=== PATIENT | female | born 1930 | race Caucasian/White ===

== ENCOUNTER 2021-03-08 15:49 | Inpatient (IN) ==
[2021-03-08] MEDS ORDERED: Loratadine 10 MG TABLET PO PRN (16:58)
[2021-03-08] MEDS ORDERED: Albuterol 2.5 MG/3 ML NEBULIZER IH PRN (16:58)
[2021-03-08] MEDS ORDERED: [UNRECOGNIZED DRUG - OTHER] IV SCH (17:00)
[2021-03-08] MEDS: cloNIDine HCL 0.1 MG TABLET PO SCH (20:36)
[2021-03-08] MEDS: Gabapentin 300 MG CAPSULE PO SCH (20:36)
[2021-03-08] MEDS: Piperacillin/Tazobactam 3.375 GM in 0.9 % Sodium Chloride Mini Bag 100 ML IVPB SCH (20:37)
[2021-03-08] MEDS: CILOSTAZOL 50 MG PO SCH (20:37)
[2021-03-08] MEDS: Sennosides/Docusate Sodium TABLET PO SCH (20:37)
[2021-03-09] MEDS: Piperacillin/Tazobactam 3.375 GM in 0.9 % Sodium Chloride Mini Bag 100 ML IVPB SCH ×3 (03:50→19:33)
[2021-03-09 07:38] LABS: Basophils # 0.1 K/mcL (0.0-0.2); Basophils % 0.7 %; Eosinophils # 0.1 K/mcL (0.0-0.6); Eosinophils % 0.8 %; Hematocrit 38.5 % (35.3-44.9); Hemoglobin 12.2 g/dL (11.5-15.4); Immature Granulocytes % 0.5 % (0-4); Lymphocytes # 1.3 K/mcL (0.6-4.6); Mean Corpuscular HGB Conc 31.7 g/dL (31.6-35.5); Mean Corpuscular Volume 94.8 fL (83.0-100.0); Mean Platelet Volume 9.5 fL (9.4-12.4); Monocytes # 1.1 K/mcL (0.0-1.3); Monocytes % 9.6 %; Neutrophils # 8.3 K/mcL (1.6-8.9); Platelet Count 266 K/mcL (140-400); Red Blood Count 4.06 M/mcL (3.82-4.97); Red Cell Distribution Width 13.7 % (11.5-14.5); Segmented Neutrophils % 76.4 %; White Blood Count 10.9 K/mcL (4.3-11.1)
[2021-03-09 08:03] LABS: Calcium 8.7 mg/dL (8.6-10.3); Potassium 4.1 mEq/L (3.5-5.1)
[2021-03-09] MEDS: Gabapentin 300 MG CAPSULE PO SCH ×3 (08:48→20:24)
[2021-03-09] MEDS: Cyanocobalamin (B-12) 1,000 MCG TABLET PO SCH (08:48)
[2021-03-09] MEDS: Metoprolol XL (24 HR) Succ 50 MG TAB.ER.24H PO SCH (08:48)
[2021-03-09] MEDS: Bumetanide 1 MG TABLET PO SCH (08:48)
[2021-03-09] MEDS: Sennosides/Docusate Sodium TABLET PO SCH ×2 (08:48→20:23)
[2021-03-09] MEDS: cloNIDine HCL 0.1 MG TABLET PO SCH ×3 (08:48→20:24)
[2021-03-09] MEDS: CILOSTAZOL 50 MG PO SCH ×2 (08:48→20:21)
[2021-03-09] MEDS: Cholecalciferol (D-3) 1,000 UNIT (25MCG) TABLET PO SCH (08:48)
[2021-03-09] MEDS: Multivit/Ca/Min/Fe/FA 1 TAB TABLET PO SCH (08:48)
[2021-03-09] MEDS: [UNRECOGNIZED DRUG - OTHER] PO SCH (08:49)
[2021-03-09] MEDS: OSTEO BI FLEX PO SCH (08:49)
[2021-03-09] MEDS ORDERED: lisinopriL 20 MG TABLET PO SCH (09:00)
[2021-03-09] MEDS ORDERED: *HR* HYDROcodone/Acet 5/325 mg TABLET PO PRN (11:16)
[2021-03-10] MEDS: Piperacillin/Tazobactam 3.375 GM in 0.9 % Sodium Chloride Mini Bag 100 ML IVPB SCH ×3 (04:32→19:48)
[2021-03-10] MEDS: cloNIDine HCL 0.1 MG TABLET PO SCH ×3 (08:28→19:45)
[2021-03-10] MEDS: Cyanocobalamin (B-12) 1,000 MCG TABLET PO SCH (08:28)
[2021-03-10] MEDS: amLODIPine 5 MG TABLET PO SCH (08:28)
[2021-03-10] MEDS: Sennosides/Docusate Sodium TABLET PO SCH ×2 (08:28→19:45)
[2021-03-10] MEDS: Metoprolol XL (24 HR) Succ 50 MG TAB.ER.24H PO SCH (08:28)
[2021-03-10] MEDS: Multivit/Ca/Min/Fe/FA 1 TAB TABLET PO SCH (08:28)
[2021-03-10] MEDS: Bumetanide 1 MG TABLET PO SCH (08:28)
[2021-03-10] MEDS: Cholecalciferol (D-3) 1,000 UNIT (25MCG) TABLET PO SCH (08:28)
[2021-03-10] MEDS: Gabapentin 300 MG CAPSULE PO SCH ×3 (08:28→19:46)
[2021-03-10] MEDS: OSTEO BI FLEX PO SCH (08:29)
[2021-03-10] MEDS: CILOSTAZOL 50 MG PO SCH ×2 (08:29→19:46)
[2021-03-10] MEDS: [UNRECOGNIZED DRUG - OTHER] PO SCH (08:29)
[2021-03-10] MEDS ORDERED: lisinopriL 20 MG TABLET PO SCH (09:00)
[2021-03-10] MEDS: Nystatin POWDER 30 GM BOTTLE TP SCH ×2 (14:31→19:49)
[2021-03-11] MEDS: Piperacillin/Tazobactam 3.375 GM in 0.9 % Sodium Chloride Mini Bag 100 ML IVPB SCH ×3 (04:49→19:42)
[2021-03-11] MEDS: Nystatin POWDER 30 GM BOTTLE TP SCH ×2 (09:20→19:43)
[2021-03-11] MEDS: Multivit/Ca/Min/Fe/FA 1 TAB TABLET PO SCH (09:21)
[2021-03-11] MEDS: Bumetanide 1 MG TABLET PO SCH (09:21)
[2021-03-11] MEDS: amLODIPine 5 MG TABLET PO SCH (09:21)
[2021-03-11] MEDS: cloNIDine HCL 0.1 MG TABLET PO SCH ×3 (09:21→19:41)
[2021-03-11] MEDS: Gabapentin 300 MG CAPSULE PO SCH ×3 (09:21→19:40)
[2021-03-11] MEDS: Sennosides/Docusate Sodium TABLET PO SCH ×2 (09:21→19:40)
[2021-03-11] MEDS: Metoprolol XL (24 HR) Succ 50 MG TAB.ER.24H PO SCH (09:21)
[2021-03-11] MEDS: Cholecalciferol (D-3) 1,000 UNIT (25MCG) TABLET PO SCH (09:21)
[2021-03-11] MEDS: Cyanocobalamin (B-12) 1,000 MCG TABLET PO SCH (09:21)
[2021-03-11] MEDS: OSTEO BI FLEX PO SCH (09:29)
[2021-03-11] MEDS: [UNRECOGNIZED DRUG - OTHER] PO SCH (09:29)
[2021-03-11] MEDS: CILOSTAZOL 50 MG PO SCH ×2 (09:31→19:55)
[2021-03-12] MEDS: Piperacillin/Tazobactam 3.375 GM in 0.9 % Sodium Chloride Mini Bag 100 ML IVPB SCH ×3 (04:34→19:54)
[2021-03-12] MEDS: Cholecalciferol (D-3) 1,000 UNIT (25MCG) TABLET PO SCH (08:45)
[2021-03-12] MEDS: CILOSTAZOL 50 MG PO SCH (08:45)
[2021-03-12] MEDS: Multivit/Ca/Min/Fe/FA 1 TAB TABLET PO SCH (08:45)
[2021-03-12] MEDS: Cyanocobalamin (B-12) 1,000 MCG TABLET PO SCH (08:45)
[2021-03-12] MEDS: cloNIDine HCL 0.1 MG TABLET PO SCH ×3 (08:45→19:53)
[2021-03-12] MEDS: Bumetanide 1 MG TABLET PO SCH (08:45)
[2021-03-12] MEDS: Nystatin POWDER 30 GM BOTTLE TP SCH ×2 (08:45→19:55)
[2021-03-12] MEDS: Gabapentin 300 MG CAPSULE PO SCH ×3 (08:45→19:52)
[2021-03-12] MEDS: amLODIPine 5 MG TABLET PO SCH (08:45)
[2021-03-12] MEDS: Sennosides/Docusate Sodium TABLET PO SCH ×2 (08:45→19:54)
[2021-03-12] MEDS: Metoprolol XL (24 HR) Succ 50 MG TAB.ER.24H PO SCH (08:45)
[2021-03-12] MEDS: [UNRECOGNIZED DRUG - OTHER] PO SCH (08:47)
[2021-03-12] MEDS: OSTEO BI FLEX PO SCH (08:47)
[2021-03-12] MEDS: cilostazoL 100 MG TABLET PO SCH (20:32)
[2021-03-13] MEDS: Piperacillin/Tazobactam 3.375 GM in 0.9 % Sodium Chloride Mini Bag 100 ML IVPB SCH ×3 (05:44→22:47)
[2021-03-13] MEDS: *HR* Heparin 5,000 UNIT/ML VIAL SQ SCH ×4 (05:44→22:47)
[2021-03-13 07:36] LABS: Hematocrit 41.8 % (35.3-44.9); Hemoglobin 13.4 g/dL (11.5-15.4); Mean Corpuscular HGB Conc 32.1 g/dL (31.6-35.5); Mean Corpuscular Hemoglobin 30.5 pg (28.0-33.3); Mean Corpuscular Volume 95.2 fL (83.0-100.0); Mean Platelet Volume 9.8 fL (9.4-12.4); Platelet Count 317 K/mcL (140-400); Red Blood Count 4.39 M/mcL (3.82-4.97); Red Cell Distribution Width 14.2 % (11.5-14.5); White Blood Count 9.9 K/mcL (4.3-11.1)
[2021-03-13 07:52] LABS: Calcium 8.8 mg/dL (8.6-10.3); Potassium 3.4 mEq/L (3.5-5.1)
[2021-03-13] MEDS: cloNIDine HCL 0.1 MG TABLET PO SCH ×3 (08:24→20:18)
[2021-03-13] MEDS: Metoprolol XL (24 HR) Succ 50 MG TAB.ER.24H PO SCH (08:24)
[2021-03-13] MEDS: Multivit/Ca/Min/Fe/FA 1 TAB TABLET PO SCH (08:25)
[2021-03-13] MEDS: Sennosides/Docusate Sodium TABLET PO SCH ×2 (08:25→20:18)
[2021-03-13] MEDS: cilostazoL 100 MG TABLET PO SCH ×2 (08:25→20:18)
[2021-03-13] MEDS: Cyanocobalamin (B-12) 1,000 MCG TABLET PO SCH (08:25)
[2021-03-13] MEDS: Bumetanide 1 MG TABLET PO SCH (08:25)
[2021-03-13] MEDS: Gabapentin 300 MG CAPSULE PO SCH ×3 (08:25→20:18)
[2021-03-13] MEDS: amLODIPine 5 MG TABLET PO SCH (08:26)
[2021-03-13] MEDS: Cholecalciferol (D-3) 1,000 UNIT (25MCG) TABLET PO SCH (08:26)
[2021-03-13] MEDS: Nystatin POWDER 30 GM BOTTLE TP SCH ×2 (08:26→20:19)
[2021-03-13] MEDS: OSTEO BI FLEX PO SCH (08:29)
[2021-03-13] MEDS: [UNRECOGNIZED DRUG - OTHER] PO SCH (08:29)
[2021-03-14] MEDS: Piperacillin/Tazobactam 3.375 GM in 0.9 % Sodium Chloride Mini Bag 100 ML IVPB SCH ×3 (05:38→22:41)
[2021-03-14] MEDS: *HR* Heparin 5,000 UNIT/ML VIAL SQ SCH ×3 (05:39→22:40)
[2021-03-14] MEDS: Cyanocobalamin (B-12) 1,000 MCG TABLET PO SCH (09:11)
[2021-03-14] MEDS: Gabapentin 300 MG CAPSULE PO SCH ×3 (09:11→20:34)
[2021-03-14] MEDS: cloNIDine HCL 0.1 MG TABLET PO SCH ×3 (09:11→20:33)
[2021-03-14] MEDS: Metoprolol XL (24 HR) Succ 50 MG TAB.ER.24H PO SCH (09:12)
[2021-03-14] MEDS: amLODIPine 5 MG TABLET PO SCH (09:12)
[2021-03-14] MEDS: Multivit/Ca/Min/Fe/FA 1 TAB TABLET PO SCH (09:12)
[2021-03-14] MEDS: Cholecalciferol (D-3) 1,000 UNIT (25MCG) TABLET PO SCH (09:12)
[2021-03-14] MEDS: Bumetanide 1 MG TABLET PO SCH (09:13)
[2021-03-14] MEDS: Sennosides/Docusate Sodium TABLET PO SCH ×2 (09:13→20:34)
[2021-03-14] MEDS: cilostazoL 100 MG TABLET PO SCH ×2 (09:13→20:33)
[2021-03-14] MEDS: Nystatin POWDER 30 GM BOTTLE TP SCH ×2 (09:14→20:34)
[2021-03-14] MEDS: OSTEO BI FLEX PO SCH (09:22)
[2021-03-14] MEDS: [UNRECOGNIZED DRUG - OTHER] PO SCH (09:22)
[2021-03-15] MEDS: *HR* Heparin 5,000 UNIT/ML VIAL SQ SCH ×3 (06:26→21:37)
[2021-03-15] MEDS: Piperacillin/Tazobactam 3.375 GM in 0.9 % Sodium Chloride Mini Bag 100 ML IVPB SCH ×4 (06:26→21:37)
[2021-03-15] MEDS: cilostazoL 100 MG TABLET PO SCH ×2 (09:24→20:50)
[2021-03-15] MEDS: Cholecalciferol (D-3) 1,000 UNIT (25MCG) TABLET PO SCH (09:24)
[2021-03-15] MEDS: amLODIPine 5 MG TABLET PO SCH (09:24)
[2021-03-15] MEDS: Bumetanide 1 MG TABLET PO SCH (09:24)
[2021-03-15] MEDS: Cyanocobalamin (B-12) 1,000 MCG TABLET PO SCH (09:24)
[2021-03-15] MEDS: Metoprolol XL (24 HR) Succ 50 MG TAB.ER.24H PO SCH (09:24)
[2021-03-15] MEDS: cloNIDine HCL 0.1 MG TABLET PO SCH ×3 (09:26→20:49)
[2021-03-15] MEDS: Sennosides/Docusate Sodium TABLET PO SCH ×2 (09:26→20:50)
[2021-03-15] MEDS: Multivit/Ca/Min/Fe/FA 1 TAB TABLET PO SCH (09:26)
[2021-03-15] MEDS: Gabapentin 300 MG CAPSULE PO SCH ×3 (09:26→20:49)
[2021-03-15] MEDS: [UNRECOGNIZED DRUG - OTHER] PO SCH (09:27)
[2021-03-15] MEDS: Fluticasone Propionate Nasal 50 MCG/SPRAY BOTTLE NS SCH (09:27)
[2021-03-15] MEDS: OSTEO BI FLEX PO SCH (09:27)
[2021-03-15] MEDS: Nystatin POWDER 30 GM BOTTLE TP SCH ×2 (14:27→20:50)
[2021-03-15] MEDS: Triamcinolone Acet 0.1% CRM 15 GM TUBE TP SCH (20:52)
[2021-03-16] MEDS: Piperacillin/Tazobactam 3.375 GM in 0.9 % Sodium Chloride Mini Bag 100 ML IVPB SCH ×3 (05:50→18:19)
[2021-03-16] MEDS: *HR* Heparin 5,000 UNIT/ML VIAL SQ SCH ×3 (05:55→21:34)
[2021-03-16] MEDS: Gabapentin 300 MG CAPSULE PO SCH ×3 (08:11→20:31)
[2021-03-16] MEDS: Multivit/Ca/Min/Fe/FA 1 TAB TABLET PO SCH (08:11)
[2021-03-16] MEDS: Metoprolol XL (24 HR) Succ 50 MG TAB.ER.24H PO SCH (08:12)
[2021-03-16] MEDS: amLODIPine 5 MG TABLET PO SCH (08:12)
[2021-03-16] MEDS: cilostazoL 100 MG TABLET PO SCH ×2 (08:13→20:31)
[2021-03-16] MEDS: Bumetanide 1 MG TABLET PO SCH (08:13)
[2021-03-16] MEDS: cloNIDine HCL 0.1 MG TABLET PO SCH ×3 (08:16→20:30)
[2021-03-16] MEDS: Cholecalciferol (D-3) 1,000 UNIT (25MCG) TABLET PO SCH (08:17)
[2021-03-16] MEDS: Cyanocobalamin (B-12) 1,000 MCG TABLET PO SCH (08:17)
[2021-03-16] MEDS: Nystatin POWDER 30 GM BOTTLE TP SCH ×2 (08:18→20:32)
[2021-03-16] MEDS: Fluticasone Propionate Nasal 50 MCG/SPRAY BOTTLE NS SCH (08:18)
[2021-03-16] MEDS: Triamcinolone Acet 0.1% CRM 15 GM TUBE TP SCH ×2 (08:23→20:33)
[2021-03-16] MEDS: OSTEO BI FLEX PO SCH (09:36)
[2021-03-16] MEDS: [UNRECOGNIZED DRUG - OTHER] PO SCH (09:36)
[2021-03-16] MEDS: Sennosides/Docusate Sodium TABLET PO SCH ×2 (09:41→20:30)
[2021-03-17] MEDS: Piperacillin/Tazobactam 3.375 GM in 0.9 % Sodium Chloride Mini Bag 100 ML IVPB SCH ×3 (06:04→21:52)
[2021-03-17] MEDS: *HR* Heparin 5,000 UNIT/ML VIAL SQ SCH ×3 (06:04→20:30)
[2021-03-17] MEDS: Multivit/Ca/Min/Fe/FA 1 TAB TABLET PO SCH (09:27)
[2021-03-17] MEDS: Metoprolol XL (24 HR) Succ 50 MG TAB.ER.24H PO SCH (09:27)
[2021-03-17] MEDS: amLODIPine 5 MG TABLET PO SCH (09:28)
[2021-03-17] MEDS: Gabapentin 300 MG CAPSULE PO SCH ×3 (09:28→20:29)
[2021-03-17] MEDS: Sennosides/Docusate Sodium TABLET PO SCH ×2 (09:29→20:29)
[2021-03-17] MEDS: Cholecalciferol (D-3) 1,000 UNIT (25MCG) TABLET PO SCH (09:29)
[2021-03-17] MEDS: Bumetanide 1 MG TABLET PO SCH (09:29)
[2021-03-17] MEDS: cloNIDine HCL 0.1 MG TABLET PO SCH ×3 (09:30→20:27)
[2021-03-17] MEDS: Cyanocobalamin (B-12) 1,000 MCG TABLET PO SCH (09:31)
[2021-03-17] MEDS: cilostazoL 100 MG TABLET PO SCH ×2 (09:31→20:29)
[2021-03-17] MEDS: [UNRECOGNIZED DRUG - OTHER] PO SCH (09:31)
[2021-03-17] MEDS: OSTEO BI FLEX PO SCH (09:32)
[2021-03-17] MEDS: Fluticasone Propionate Nasal 50 MCG/SPRAY BOTTLE NS SCH (09:33)
[2021-03-17] MEDS: Triamcinolone Acet 0.1% CRM 15 GM TUBE TP SCH ×2 (09:33→21:54)
[2021-03-17] MEDS: Nystatin POWDER 30 GM BOTTLE TP SCH ×2 (09:34→20:33)
[2021-03-18] MEDS: Piperacillin/Tazobactam 3.375 GM in 0.9 % Sodium Chloride Mini Bag 100 ML IVPB SCH ×3 (05:33→22:29)
[2021-03-18] MEDS: *HR* Heparin 5,000 UNIT/ML VIAL SQ SCH ×3 (05:35→22:29)
[2021-03-18] MEDS: cilostazoL 100 MG TABLET PO SCH ×2 (08:52→19:30)
[2021-03-18] MEDS: Metoprolol XL (24 HR) Succ 50 MG TAB.ER.24H PO SCH (08:52)
[2021-03-18] MEDS: cloNIDine HCL 0.1 MG TABLET PO SCH ×3 (08:52→19:30)
[2021-03-18] MEDS: Gabapentin 300 MG CAPSULE PO SCH ×3 (08:52→19:30)
[2021-03-18] MEDS: Cyanocobalamin (B-12) 1,000 MCG TABLET PO SCH (08:53)
[2021-03-18] MEDS: Multivit/Ca/Min/Fe/FA 1 TAB TABLET PO SCH (08:53)
[2021-03-18] MEDS: Bumetanide 1 MG TABLET PO SCH (08:53)
[2021-03-18] MEDS: amLODIPine 5 MG TABLET PO SCH (08:53)
[2021-03-18] MEDS: Sennosides/Docusate Sodium TABLET PO SCH ×2 (08:53→19:31)
[2021-03-18] MEDS: Cholecalciferol (D-3) 1,000 UNIT (25MCG) TABLET PO SCH (08:53)
[2021-03-18] MEDS: Nystatin POWDER 30 GM BOTTLE TP SCH ×2 (08:53→19:31)
[2021-03-18] MEDS: Fluticasone Propionate Nasal 50 MCG/SPRAY BOTTLE NS SCH (09:38)
[2021-03-18] MEDS: OSTEO BI FLEX PO SCH (09:40)
[2021-03-18] MEDS: [UNRECOGNIZED DRUG - OTHER] PO SCH (09:40)
[2021-03-18] MEDS: Triamcinolone Acet 0.1% CRM 15 GM TUBE TP SCH ×2 (09:40→19:31)
[2021-03-19] MEDS: *HR* Heparin 5,000 UNIT/ML VIAL SQ SCH ×3 (06:16→21:29)
[2021-03-19] MEDS: Piperacillin/Tazobactam 3.375 GM in 0.9 % Sodium Chloride Mini Bag 100 ML IVPB SCH ×3 (06:16→21:30)
[2021-03-19] MEDS: Bumetanide 1 MG TABLET PO SCH (07:41)
[2021-03-19] MEDS: Cholecalciferol (D-3) 1,000 UNIT (25MCG) TABLET PO SCH (07:41)
[2021-03-19] MEDS: Gabapentin 300 MG CAPSULE PO SCH ×3 (07:41→21:29)
[2021-03-19] MEDS: cilostazoL 100 MG TABLET PO SCH ×2 (07:41→21:28)
[2021-03-19] MEDS: cloNIDine HCL 0.1 MG TABLET PO SCH ×3 (07:42→21:28)
[2021-03-19] MEDS: Cyanocobalamin (B-12) 1,000 MCG TABLET PO SCH (07:42)
[2021-03-19] MEDS: Metoprolol XL (24 HR) Succ 50 MG TAB.ER.24H PO SCH (07:42)
[2021-03-19] MEDS: amLODIPine 5 MG TABLET PO SCH (07:42)
[2021-03-19] MEDS: Multivit/Ca/Min/Fe/FA 1 TAB TABLET PO SCH (07:42)
[2021-03-19] MEDS: OSTEO BI FLEX PO SCH (07:43)
[2021-03-19] MEDS: [UNRECOGNIZED DRUG - OTHER] PO SCH (07:43)
[2021-03-19] MEDS: Nystatin POWDER 30 GM BOTTLE TP SCH ×2 (07:43→21:29)
[2021-03-19] MEDS: Fluticasone Propionate Nasal 50 MCG/SPRAY BOTTLE NS SCH (07:43)
[2021-03-19] MEDS: Triamcinolone Acet 0.1% CRM 15 GM TUBE TP SCH ×2 (07:49→21:30)
[2021-03-19] MEDS: Sennosides/Docusate Sodium TABLET PO SCH ×2 (07:55→21:29)
[2021-03-20] MEDS: Piperacillin/Tazobactam 3.375 GM in 0.9 % Sodium Chloride Mini Bag 100 ML IVPB SCH ×3 (06:22→22:15)
[2021-03-20] MEDS: *HR* Heparin 5,000 UNIT/ML VIAL SQ SCH ×3 (06:23→22:15)
[2021-03-20] MEDS: Bumetanide 1 MG TABLET PO SCH (07:53)
[2021-03-20] MEDS: Gabapentin 300 MG CAPSULE PO SCH ×3 (07:53→19:26)
[2021-03-20] MEDS: cloNIDine HCL 0.1 MG TABLET PO SCH ×3 (07:53→19:26)
[2021-03-20] MEDS: Cyanocobalamin (B-12) 1,000 MCG TABLET PO SCH (07:53)
[2021-03-20] MEDS: Cholecalciferol (D-3) 1,000 UNIT (25MCG) TABLET PO SCH (07:53)
[2021-03-20] MEDS: Multivit/Ca/Min/Fe/FA 1 TAB TABLET PO SCH (07:53)
[2021-03-20] MEDS: Fluticasone Propionate Nasal 50 MCG/SPRAY BOTTLE NS SCH (07:54)
[2021-03-20] MEDS: amLODIPine 5 MG TABLET PO SCH (07:54)
[2021-03-20] MEDS: cilostazoL 100 MG TABLET PO SCH ×2 (07:54→19:26)
[2021-03-20] MEDS: Metoprolol XL (24 HR) Succ 50 MG TAB.ER.24H PO SCH (07:54)
[2021-03-20] MEDS: Nystatin POWDER 30 GM BOTTLE TP SCH ×2 (07:55→19:27)
[2021-03-20] MEDS: OSTEO BI FLEX PO SCH (07:55)
[2021-03-20] MEDS: [UNRECOGNIZED DRUG - OTHER] PO SCH (07:55)
[2021-03-20] MEDS: Triamcinolone Acet 0.1% CRM 15 GM TUBE TP SCH ×2 (07:56→19:27)
[2021-03-20] MEDS: Sennosides/Docusate Sodium TABLET PO SCH (07:56)
[2021-03-20 09:01] LABS: Basophils # 0.1 K/mcL (0.0-0.2); Basophils % 1.2 %; Eosinophils # 0.3 K/mcL (0.0-0.6); Eosinophils % 3.5 %; Hematocrit 37.4 % (35.3-44.9); Hemoglobin 11.7 g/dL (11.5-15.4); Immature Granulocytes % 0.5 % (0-4); Lymphocytes # 1.5 K/mcL (0.6-4.6); Lymphocytes % 17.9 %; Mean Corpuscular HGB Conc 31.3 g/dL (31.6-35.5); Mean Corpuscular Hemoglobin 29.9 pg (28.0-33.3); Mean Corpuscular Volume 95.7 fL (83.0-100.0); Mean Platelet Volume 10.9 fL (9.4-12.4); Monocytes # 0.7 K/mcL (0.0-1.3); Neutrophils # 5.5 K/mcL (1.6-8.9); Platelet Count 247 K/mcL (140-400); Red Blood Count 3.91 M/mcL (3.82-4.97); Red Cell Distribution Width 14.5 % (11.5-14.5); Segmented Neutrophils % 67.9 %; White Blood Count 8.1 K/mcL (4.3-11.1)
[2021-03-20 09:17] LABS: Albumin 3.2 g/dL (3.5-5.7); Calcium 9.1 mg/dL (8.6-10.3); Phosphorous 2.8 mg/dL (2.7-4.5); Potassium 3.5 mEq/L (3.5-5.1)
[2021-03-20 09:46] LABS: Platelet Estimate Normal (Normal)
[2021-03-20] MEDS ORDERED: Sennosides/Docusate Sodium TABLET PO PRN (10:34)
[2021-03-20] MEDS ORDERED: hydrALAZINE 25 MG TABLET PO PRN (16:40)
[2021-03-21] MEDS: *HR* Heparin 5,000 UNIT/ML VIAL SQ SCH ×3 (06:43→21:03)
[2021-03-21] MEDS: [UNRECOGNIZED DRUG - OTHER] PO SCH (09:08)
[2021-03-21] MEDS: Cyanocobalamin (B-12) 1,000 MCG TABLET PO SCH (09:08)
[2021-03-21] MEDS: Cholecalciferol (D-3) 1,000 UNIT (25MCG) TABLET PO SCH (09:08)
[2021-03-21] MEDS: cloNIDine HCL 0.1 MG TABLET PO SCH ×3 (09:09→21:03)
[2021-03-21] MEDS: amLODIPine 5 MG TABLET PO SCH (09:09)
[2021-03-21] MEDS: cilostazoL 100 MG TABLET PO SCH ×2 (09:09→21:03)
[2021-03-21] MEDS: Metoprolol XL (24 HR) Succ 50 MG TAB.ER.24H PO SCH (09:10)
[2021-03-21] MEDS: Multivit/Ca/Min/Fe/FA 1 TAB TABLET PO SCH (09:11)
[2021-03-21] MEDS: Bumetanide 1 MG TABLET PO SCH (09:11)
[2021-03-21] MEDS: Gabapentin 300 MG CAPSULE PO SCH ×3 (09:11→21:03)
[2021-03-21] MEDS: Fluticasone Propionate Nasal 50 MCG/SPRAY BOTTLE NS SCH (09:12)
[2021-03-21] MEDS: Nystatin POWDER 30 GM BOTTLE TP SCH ×2 (09:13→21:03)
[2021-03-21] MEDS: OSTEO BI FLEX PO SCH (09:14)
[2021-03-21] MEDS: Triamcinolone Acet 0.1% CRM 15 GM TUBE TP SCH ×2 (09:14→21:05)
[2021-03-21] MEDS: Piperacillin/Tazobactam 3.375 GM in 0.9 % Sodium Chloride Mini Bag 100 ML IVPB SCH ×2 (15:07→22:45)
[2021-03-21] MEDS: Furosemide 20 MG TABLET PO SCH (16:08)
[2021-03-22] MEDS: *HR* Heparin 5,000 UNIT/ML VIAL SQ SCH ×3 (06:17→22:30)
[2021-03-22] MEDS: Piperacillin/Tazobactam 3.375 GM in 0.9 % Sodium Chloride Mini Bag 100 ML IVPB SCH ×2 (06:17→15:53)
[2021-03-22] MEDS: Multivit/Ca/Min/Fe/FA 1 TAB TABLET PO SCH (09:00)
[2021-03-22] MEDS: cloNIDine HCL 0.1 MG TABLET PO SCH ×3 (09:01→22:29)
[2021-03-22] MEDS: amLODIPine 5 MG TABLET PO SCH (09:01)
[2021-03-22] MEDS: Furosemide 20 MG TABLET PO SCH ×2 (09:01→17:04)
[2021-03-22] MEDS: Bumetanide 1 MG TABLET PO SCH (09:01)
[2021-03-22] MEDS: Metoprolol XL (24 HR) Succ 50 MG TAB.ER.24H PO SCH (09:01)
[2021-03-22] MEDS: cilostazoL 100 MG TABLET PO SCH ×2 (09:01→22:29)
[2021-03-22] MEDS: hydrALAZINE 25 MG TABLET PO SCH ×2 (09:02→17:04)
[2021-03-22] MEDS: Cholecalciferol (D-3) 1,000 UNIT (25MCG) TABLET PO SCH (09:02)
[2021-03-22] MEDS: Gabapentin 300 MG CAPSULE PO SCH ×3 (09:02→22:29)
[2021-03-22] MEDS: Cyanocobalamin (B-12) 1,000 MCG TABLET PO SCH (09:02)
[2021-03-22] MEDS: OSTEO BI FLEX PO SCH (09:24)
[2021-03-22] MEDS: [UNRECOGNIZED DRUG - OTHER] PO SCH (09:24)
[2021-03-22] MEDS: Fluticasone Propionate Nasal 50 MCG/SPRAY BOTTLE NS SCH (09:24)
[2021-03-22] MEDS: Triamcinolone Acet 0.1% CRM 15 GM TUBE TP SCH ×2 (09:25→22:29)
[2021-03-22] MEDS: Nystatin POWDER 30 GM BOTTLE TP SCH ×2 (09:25→22:30)
[2021-03-23] MEDS: Piperacillin/Tazobactam 3.375 GM in 0.9 % Sodium Chloride Mini Bag 100 ML IVPB SCH ×4 (00:14→22:54)
[2021-03-23] MEDS: hydrALAZINE 25 MG TABLET PO SCH ×4 (00:18→23:24)
[2021-03-23] MEDS: *HR* Heparin 5,000 UNIT/ML VIAL SQ SCH ×3 (06:34→22:57)
[2021-03-23] MEDS: Metoprolol XL (24 HR) Succ 50 MG TAB.ER.24H PO SCH (08:02)
[2021-03-23] MEDS: Multivit/Ca/Min/Fe/FA 1 TAB TABLET PO SCH (08:02)
[2021-03-23] MEDS: Cyanocobalamin (B-12) 1,000 MCG TABLET PO SCH (08:03)
[2021-03-23] MEDS: Cholecalciferol (D-3) 1,000 UNIT (25MCG) TABLET PO SCH (08:03)
[2021-03-23] MEDS: Furosemide 20 MG TABLET PO SCH ×2 (08:03→16:35)
[2021-03-23] MEDS: Gabapentin 300 MG CAPSULE PO SCH ×3 (08:03→19:50)
[2021-03-23] MEDS: cilostazoL 100 MG TABLET PO SCH ×2 (08:03→19:50)
[2021-03-23] MEDS: amLODIPine 5 MG TABLET PO SCH (08:03)
[2021-03-23] MEDS: Bumetanide 1 MG TABLET PO SCH (08:03)
[2021-03-23] MEDS: cloNIDine HCL 0.1 MG TABLET PO SCH ×3 (08:03→19:49)
[2021-03-23] MEDS: Nystatin POWDER 30 GM BOTTLE TP SCH ×2 (08:04→19:51)
[2021-03-23] MEDS: [UNRECOGNIZED DRUG - OTHER] PO SCH (08:04)
[2021-03-23] MEDS: Fluticasone Propionate Nasal 50 MCG/SPRAY BOTTLE NS SCH (08:05)
[2021-03-23] MEDS: Triamcinolone Acet 0.1% CRM 15 GM TUBE TP SCH ×2 (08:06→19:51)
[2021-03-23] MEDS: OSTEO BI FLEX PO SCH (08:06)
[2021-03-23] MEDS ORDERED: Lidocaine -MPF 1% 5 ML AMPUL INFILT ONE (13:18)
[2021-03-24] MEDS: Piperacillin/Tazobactam 3.375 GM in 0.9 % Sodium Chloride Mini Bag 100 ML IVPB SCH ×3 (06:04→21:04)
[2021-03-24] MEDS: *HR* Heparin 5,000 UNIT/ML VIAL SQ SCH ×3 (06:06→21:03)
[2021-03-24] MEDS: cloNIDine HCL 0.1 MG TABLET PO SCH ×3 (08:09→20:42)
[2021-03-24] MEDS: Bumetanide 1 MG TABLET PO SCH (08:09)
[2021-03-24] MEDS: Cyanocobalamin (B-12) 1,000 MCG TABLET PO SCH (08:10)
[2021-03-24] MEDS: hydrALAZINE 25 MG TABLET PO SCH ×3 (08:10→23:49)
[2021-03-24] MEDS: amLODIPine 5 MG TABLET PO SCH (08:10)
[2021-03-24] MEDS: Multivit/Ca/Min/Fe/FA 1 TAB TABLET PO SCH (08:10)
[2021-03-24] MEDS: Gabapentin 300 MG CAPSULE PO SCH ×3 (08:10→20:42)
[2021-03-24] MEDS: [UNRECOGNIZED DRUG - OTHER] PO SCH (08:11)
[2021-03-24] MEDS: OSTEO BI FLEX PO SCH (08:11)
[2021-03-24] MEDS: Furosemide 20 MG TABLET PO SCH ×2 (08:11→18:03)
[2021-03-24] MEDS: cilostazoL 100 MG TABLET PO SCH ×2 (08:11→20:42)
[2021-03-24] MEDS: Metoprolol XL (24 HR) Succ 50 MG TAB.ER.24H PO SCH (08:11)
[2021-03-24] MEDS: Cholecalciferol (D-3) 1,000 UNIT (25MCG) TABLET PO SCH (08:11)
[2021-03-24] MEDS: Nystatin POWDER 30 GM BOTTLE TP SCH ×2 (08:12→20:42)
[2021-03-24] MEDS: Fluticasone Propionate Nasal 50 MCG/SPRAY BOTTLE NS SCH (08:12)
[2021-03-24] MEDS: Triamcinolone Acet 0.1% CRM 15 GM TUBE TP SCH ×2 (08:12→20:42)
[2021-03-25] MEDS: Piperacillin/Tazobactam 3.375 GM in 0.9 % Sodium Chloride Mini Bag 100 ML IVPB SCH ×3 (05:53→21:20)
[2021-03-25] MEDS: *HR* Heparin 5,000 UNIT/ML VIAL SQ SCH ×3 (05:53→20:23)
[2021-03-25] MEDS: hydrALAZINE 25 MG TABLET PO SCH ×2 (09:32→17:38)
[2021-03-25] MEDS: cilostazoL 100 MG TABLET PO SCH ×2 (09:32→20:22)
[2021-03-25] MEDS: cloNIDine HCL 0.1 MG TABLET PO SCH ×3 (09:32→20:22)
[2021-03-25] MEDS: Multivit/Ca/Min/Fe/FA 1 TAB TABLET PO SCH (09:32)
[2021-03-25] MEDS: Gabapentin 300 MG CAPSULE PO SCH ×3 (09:32→20:23)
[2021-03-25] MEDS: Metoprolol XL (24 HR) Succ 50 MG TAB.ER.24H PO SCH (09:32)
[2021-03-25] MEDS: [UNRECOGNIZED DRUG - OTHER] PO SCH (09:33)
[2021-03-25] MEDS: Nystatin POWDER 30 GM BOTTLE TP SCH ×2 (09:33→21:20)
[2021-03-25] MEDS: amLODIPine 5 MG TABLET PO SCH (09:33)
[2021-03-25] MEDS: Bumetanide 1 MG TABLET PO SCH (09:33)
[2021-03-25] MEDS: OSTEO BI FLEX PO SCH (09:33)
[2021-03-25] MEDS: Cholecalciferol (D-3) 1,000 UNIT (25MCG) TABLET PO SCH (09:33)
[2021-03-25] MEDS: Furosemide 20 MG TABLET PO SCH ×2 (09:33→17:38)
[2021-03-25] MEDS: Fluticasone Propionate Nasal 50 MCG/SPRAY BOTTLE NS SCH (09:34)
[2021-03-25] MEDS: Cyanocobalamin (B-12) 1,000 MCG TABLET PO SCH (09:34)
[2021-03-25] MEDS: Triamcinolone Acet 0.1% CRM 15 GM TUBE TP SCH ×2 (09:34→21:20)
[2021-03-26] MEDS: hydrALAZINE 25 MG TABLET PO SCH ×3 (00:47→16:13)
[2021-03-26] MEDS: *HR* Heparin 5,000 UNIT/ML VIAL SQ SCH ×3 (05:36→21:55)
[2021-03-26] MEDS: Piperacillin/Tazobactam 3.375 GM in 0.9 % Sodium Chloride Mini Bag 100 ML IVPB SCH ×3 (05:36→22:45)
[2021-03-26] MEDS: Cyanocobalamin (B-12) 1,000 MCG TABLET PO SCH (07:55)
[2021-03-26] MEDS: amLODIPine 5 MG TABLET PO SCH (07:55)
[2021-03-26] MEDS: Cholecalciferol (D-3) 1,000 UNIT (25MCG) TABLET PO SCH (07:55)
[2021-03-26] MEDS: Metoprolol XL (24 HR) Succ 50 MG TAB.ER.24H PO SCH (07:55)
[2021-03-26] MEDS: cilostazoL 100 MG TABLET PO SCH ×2 (07:56→21:27)
[2021-03-26] MEDS: Furosemide 20 MG TABLET PO SCH ×2 (07:56→16:12)
[2021-03-26] MEDS: Gabapentin 300 MG CAPSULE PO SCH ×3 (07:56→21:27)
[2021-03-26] MEDS: Bumetanide 1 MG TABLET PO SCH (07:56)
[2021-03-26] MEDS: Multivit/Ca/Min/Fe/FA 1 TAB TABLET PO SCH (07:56)
[2021-03-26] MEDS: cloNIDine HCL 0.1 MG TABLET PO SCH ×3 (07:56→21:27)
[2021-03-26] MEDS: [UNRECOGNIZED DRUG - OTHER] PO SCH (07:57)
[2021-03-26] MEDS: OSTEO BI FLEX PO SCH (07:57)
[2021-03-26] MEDS: Fluticasone Propionate Nasal 50 MCG/SPRAY BOTTLE NS SCH (07:58)
[2021-03-26] MEDS: Nystatin POWDER 30 GM BOTTLE TP SCH ×2 (07:59→21:31)
[2021-03-26] MEDS: Triamcinolone Acet 0.1% CRM 15 GM TUBE TP SCH ×2 (08:00→21:33)
[2021-03-27] MEDS ORDERED: Furosemide 40 MG/4 ML VIAL IVP ONE (00:45)
[2021-03-27] MEDS: hydrALAZINE 25 MG TABLET PO SCH (01:10)
[2021-03-27] MEDS ORDERED: Bumetanide 1 MG/4 ML VIAL IVP ONE (02:50)
[2021-03-27] MEDS ORDERED: Nitroglycerin 1 INCH/GM PACKET TP ONE (02:51)
[2021-03-27 04:05] LABS: Basophils # 0.1 K/mcL (0.0-0.2); Basophils % 0.8 %; Eosinophils # 0.1 K/mcL (0.0-0.6); Eosinophils % 0.6 %; Hematocrit 38.7 % (35.3-44.9); Immature Granulocytes % 0.5 % (0-4); Lymphocytes % 8.8 %; Mean Corpuscular Hemoglobin 30.1 pg (28.0-33.3); Mean Platelet Volume 9.9 fL (9.4-12.4); Monocytes # 0.8 K/mcL (0.0-1.3); Monocytes % 6.5 %; Neutrophils # 9.6 K/mcL (1.6-8.9); Platelet Count 272 K/mcL (140-400); Red Blood Count 3.99 M/mcL (3.82-4.97); Red Cell Distribution Width 15.6 % (11.5-14.5); Segmented Neutrophils % 82.8 %; White Blood Count 11.6 K/mcL (4.3-11.1)
[2021-03-27 05:06] LABS: Potassium 3.5 mEq/L (3.5-5.1)
[2021-03-27] MEDS: *HR* Heparin 5,000 UNIT/ML VIAL SQ SCH (06:05)
[2021-03-27 06:36] VITALS: BP 158/67; PULSE 65; RESP 20; TEMP 97.2; O2SAT 94
[2021-03-27] MEDS: Piperacillin/Tazobactam 3.375 GM in 0.9 % Sodium Chloride Mini Bag 100 ML IVPB SCH (06:48)
== END 2021-03-27 08:00 | disposition short-term general hospital (02) | DRG 540 ==
LOC: INPPIK 18:11
PROVIDERS: ADMIT Family Medicine; ATTEND Family Medicine